=== PATIENT | male | born 1995 | race Hispanic/Latino ===

== ENCOUNTER 2017-09-28 22:04 | Emergency (ER) | payer SELFPAY ==
[2017-09-28] MEDS ORDERED: NA CHLORIDE 0.9% 1,000 ML ONE (22:47)
[2017-09-28 22:58] LABS: Absolute Lymphocytes (CBC) 1.7 K/uL (0.7-4.9); Absolute Monocytes 1.1 K/uL (0.1-1.3); Absolute Neutrophil 13.4 K/uL (1.8-8.0); Basophils % 0.4 % (0-1.3); Eosinophils % 0.1 % (0-4.4); Hematocrit 44.7 % (39.6-49.0); Lymphocytes % 10.6 % (15.3-44.8); MCV 85.4 fL (80-100); MPV 8.8 fL (7.6-11.3); Monocytes % 6.6 % (3.3-12.3); RBC Red Blood Cell Count 5.23 M/uL (4.33-5.43)
[2017-09-28 23:06] LABS: Bicarbonate 23 mEq/L (21-31); Glucose Level 97 mg/dL (65-120); Potassium 3.5 mEq/L (3.6-5.0); Sodium Level 136 mEq/L (135-145)
[2017-09-28 23:07] LABS: BUN Blood Urea Nitrogen 12 mg/dL (6-20)
[2017-09-28 23:44] LABS: Urine Blood NEGATIVE (NEG); Urine Glucose NEGATIVE (NEG); Urine Protein NEGATIVE (NEG); Urine Specific Gravity <1.005 (1.005-1.030); Urine pH 5.5 (5.0-7.0)
[2017-09-29] MEDS ORDERED: NA CHLORIDE 0.9% 0 ML ONE (00:17)
[2017-09-29] MEDS ORDERED: NA CHLORIDE 0.9% 1,000 ML ONE (00:20)
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
[2017-09-29] MEDS ORDERED: POTASSIUM 25 MEQ EFFERV TAB ONE (00:52)
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
== END 2017-09-29 01:38 | disposition home or self-care (01) ==
LOC: ER 22:04
DX: S06.0X1A Concussion with loss of consciousness of 30 minutes or less, initial encounter (principal); V86.59XA Driver of other special all-terrain or other off-road motor vehicle injured in nontraffic accident, initial encounter; Z72.0 Tobacco use
CPT/HCPCS: 36415; 70450; 71260; 72125; 74177; 80048; 81003; 85025; 86850; 86900; 86901; 96360; 96361; 99285; J7030; Q9967